=== PATIENT | male | born 1995 | race American Indian/Alaskan Native ===

== ENCOUNTER 2021-07-05 17:43 | Emergency (ER) | payer BC ==
[2021-07-05 17:53] VITALS: BP 135/79
--- NOTE | 2021-07-05 18:28 | Emergency Department Report ---
ED ENT HPI - General Chief complaint: Dental/Oral Stated complaint: DENTAL Time Seen by Provider: 07/05/21 18:09 Source: patient Mode of arrival: Ambulatory Limitations: No Limitations - History of Present Illness Initial comments: 26-year-old male presents to the ER today with complaints of left upper dental pain and left upper jaw tightness. Patient states that his symptoms started mildly 4 days ago but has since gotten worse. He states that he did see his dentist at [facility] this past Friday and was prescribed what he thinks was amoxicillin and he is scheduled to follow-up this coming Friday for extraction. Patient admits that he has not been taking the amoxicillin because he has difficulty swallowing capsules. He has only taken 1 dose of the amoxicillin since he was given the medication. He states that he feels like the pain and the swelling is getting worse. He reports no trismus, drooling, facial redness, fever, chills, difficulty swallowing or any additional symptoms at this time. MD complaint: tooth pain -: days(s) (4) - Related Data Previous Rx's Medication Instructions Recorded Last Taken Type Amoxicillin [Amoxicillin 250 MG/5 500 mg PO Q8HR 10 Days #1 bottle 07/05/21 Unknown Rx Ml] Ketorolac [Toradol] 10 mg PO Q6H PRN #20 tablet 07/05/21 Unknown Rx Allergies Allergy/AdvReac Type Severity Reaction Status Date / Time No Known Allergies Allergy Unverified 07/05/21 17:52 ED Dental HPI - General Chief complaint: Dental/Oral Stated complaint: DENTAL Time Seen by Provider: 07/05/21 18:09 Source: patient Mode of arrival: Ambulatory Limitations: No Limitations - Related Data Previous Rx's Medication Instructions Recorded Last Taken Type Amoxicillin [Amoxicillin 250 MG/5 500 mg PO Q8HR 10 Days #1 bottle 07/05/21 Unk nown Rx Ml] Ketorolac [Toradol] 10 mg PO Q6H PRN #20 tablet 07/05/21 Unknown Rx Allergies Allergy/AdvReac Type Severity Reaction Status Date / Time No Known Allergies Allergy Unverified 07/05/21 17:52 ED Review of Systems ROS: Stated complaint: DENTAL Other details as noted in HPI Comment: All other systems reviewed and negative Constitutional: denies: chills, fever Eyes: denies: eye pain, eye discharge, vision change ENT: dental pain. denies: ear pain, throat pain, congestion Respiratory: denies: cough, shortness of breath, SOB with exertion, SOB at rest, wheezing Cardiovascular: denies: chest pain, palpitations, edema, syncope, paroxysmal nocturnal dyspnea Endocrine: no symptoms reported Gastrointestinal: denies: abdominal pain, nausea, diarrhea, constipation, hematemesis, hematochezia Genitourinary: denies: urgency, dysuria, frequency, hematuria, discharge, testicular pain, testicular mass Musculoskeletal: as per HPI. denies: joint swelling, arthralgia Skin: denies: rash, lesions, change in color, change in hair/nails, pruritus Neurological: denies: headache, weakness, numbness, paresthesias, confusion, abnormal gait Psychiatric: denies: anxiety, depression, auditory hallucinations, visual hallucinations, homicidal thoughts Hematological/Lymphatic: denies: easy bleeding, easy bruising, swollen glands ED Past Medical Hx - Medications Home Medications: Home Medications Medication Instructions Recorded Confirmed Last Taken Type Amoxicillin [Amoxicillin 250 MG/5 500 mg PO Q8HR 10 Days #1 bottle 07/05/21 Unknown Rx Ml] Ketorolac [Toradol] 10 mg PO Q6H PRN #20 tablet 07/05/21 Unknown Rx ED Physical Exam - General Limitations: No Limitations General appearance: alert, in no apparent distress, obese - Head Head exam: Present: atraumatic, normocephalic, normal inspection - Eye Eye exam: Present: normal appearance, PERRL, EOMI Pupils: Present: normal accommodation - ENT ENT exam: Present: normal exam, mucous membranes moist - Expanded ENT Exam Expanded Mouth exam: Present: normal external inspection 1 - Dental Tenderness, Other (Extensive dental decay to about the gum; no apparent signs of an abscess) - Neck Neck exam: Present: normal inspection, full ROM. Absent: meningismus - Respiratory Respiratory exam: Absent: respiratory distress - Cardiovascular Cardiovascular Exam: Present: regular rate - Neurological Exam Neurological exam: Present: alert, oriented X3, CN II-XII intact, normal gait - Psychiatric Psychiatric exam: Present: normal affect, normal mood - Skin Skin exam: Present: intact ED Course Vital Signs 07/05/21 17:52 Temperature 97.5 F L Pulse Rate 73 Respiratory 18 Rate Blood Pressure 135/79 [Right] O2 Sat by Pulse 100 Oximetry Critical care attestation.: If time is entered above; I have spent that time in minutes in the direct care of this critically ill patient, excluding procedure time. ED Disposition Clinical Impression: Pain due to dental caries Disposition: HOME / SELF CARE / HOMELESS Is pt being admited?: No Does the pt Need Aspirin: No Condition: Stable Instructions: Preventive Dental Care, Adult Additional Instructions: I recommend that you take the amoxicillin liquid as prescribed. Take the Toradol as needed for pain. Do warm salt water rinses as often as you can. Keep your appointment with your dentist this coming Friday. Return to the ER if anything worsens. Prescriptions: Amoxicillin [Amoxicillin 250 MG/5 Ml] 500 mg PO Q8HR 10 Days #1 bottle Ketorolac [Toradol] 10 mg PO Q6H PRN #20 tablet PRN Reason: Pain Time of Disposition: 18:28
== END 2021-07-05 18:45 | disposition home or self-care (01) ==
LOC: ED 17:43
DX: K02.9 Dental caries, unspecified (principal); Z79.899 Other long term (current) drug therapy
CPT/HCPCS: 99282